=== PATIENT | female | born 1955 | race Caucasian/White ===

== ENCOUNTER 2017-09-24 09:40 | Emergency (ER) | payer OTHER ==
[~2017-09-24] VITALS: Ht 152.4 cm; Wt 59.0 kg
[2017-09-24 09:40] VITALS: BP 142/86
[2017-09-24] MEDS ORDERED: IBUPROFEN 600 MG TABLET PO ONE ×2 (10:54→11:00)
== END 2017-09-24 11:06 | disposition home or self-care (01) ==
LOC: ER 09:41
DX: G89.29 Other chronic pain (principal); M54.5 Low back pain; Z60.2 Problems related to living alone
CPT/HCPCS: 99283; A4606; Z7610